=== PATIENT | male | born 1960 | race American Indian/Alaskan Native ===

== ENCOUNTER 2017-02-26 07:54 | Emergency (ER) | payer SELFPAY ==
[2017-02-26 08:03] VITALS: BMI 32.0
[2017-02-26 08:05] VITALS: BP 134/88; PULSE 64; RESP 16; TEMP 98.3; O2SAT 97
--- NOTE | 2017-02-26 09:31 | ED PDOC ---
Upper Extremity Pain/Injury Time Seen by Provider: 02/26/17 08:30 Chief Complaint (Nursing): Upper Extremity Problem/Injury Chief Complaint (Provider): Upper Extremity Problem/Injury History Per: Patient History/Exam Limitations: no limitations Onset/Duration Of Symptoms: Days (x1 week) Current Symptoms Are (Timing): Still Present Additional Complaint(s): Kirk Morrison is a 56 year old male who presents to the emergency department, accompanied by his girlfriend, for an evauation of right armpit pain associated with swelling ongoing for 1 week. Denied fever or chills. Patient stated he has been taking Advil for symptom relief. PMD: none provided Past Medical History Reviewed: Historical Data, Nursing Documentation, Vital Signs Vital Signs: Last Vital Signs Temp 98.3 F 02/26/17 08:03 Pulse 64 02/26/17 08:03 Resp 16 02/26/17 08:03 BP 134/88 02/26/17 08:03 Pulse Ox 97 02/26/17 08:03 - Medical History PMH: No Chronic Diseases - Surgical History Surgical History: Appendectomy - Family History Family History: States: Unknown Family Hx - Social History Current smoker - smoking cessation education provided: No Alcohol: None Drugs: Denies - Home Medications Home Medications: Ambulatory Orders Medication Instructions Recorded Albuterol HFA [Ventolin HFA 90 1 - 2 puff IH Q6 PRN #1 inhaler 08/06/16 mcg/actuation (8 g)] Benzonatate [Tessalon Perle] 100 mg PO TID PRN #15 capsule 08/06/16 levoFLOXacin [Levaquin] 500 mg PO DAILY #10 tab 08/06/16 Doxycycline Hyclate 100 mg PO BID #14 capsule 02/26/17 - Allergies Allergies/Adverse Reactions: Allergies Allergy/AdvReac Type Severity Reaction Status Date / Time No Known Allergies Allergy Verified 08/06/16 00:23 Review of Systems ROS Statement: Except As Marked, All Systems Reviewed And Found Negative Constitutional: Negative for: Fever, Chills, Weakness Musculoskeletal: Positive for: Arm Pain (right armpit) Physical Exam - Reviewed Nursing Documentation Reviewed: Yes Vital Signs Reviewed: Yes - Physical Exam Appears: Positive for: Well, Non-toxic, No Acute Distress Head Exam: Positive for: ATRAUMATIC, NORMAL INSPECTION, NORMOCEPHALIC Skin: Positive for: Normal Color, Warm, Dry. Negative for: Rash Eye Exam: Positive for: EOMI Cardiovascular/Chest: Positive for: Regular Rate, Rhythm Respiratory: Negative for: Decreased Breath Sounds, Respiratory Distress Extremity: Positive for: Normal ROM (bilateral arms) Lymphatic: Positive for: Other (right axilla linear density). Negative for: Adenopathy (or abscess/edema/erythema), Axilla Node Tenderness Neurologic/Psych: Positive for: Alert (x3), Oriented - ECG O2 Sat by Pulse Oximetry: 97 (RA) Pulse Ox Interpretation: Normal Medical Decision Making Medical Decision Making: Initial Impression: Hidradenitis Time: 929 --Upon provider evaluation, patient is medically stable and requires no further treatment in the ED at this time. Patient will be discharged home with Rx for Doxycyline Hyclate. Counseling was provided and all questions were answered regarding diagnosis. There is agreement to discharge plan. Return if symptoms persist or worsen. Clinical Impression: Hidradenitis Scribe Attestation: Documented by Comfort Gallo, acting as a scribe for Amrita Claudio MD. Provider Scribe Attestation: All medical record entries made by the Scribe were at my direction and personally dictated by me. I have reviewed the chart and agree that the record accurately reflects my personal performance of the history, physical exam, medical decision making, and the department course for this patient. I have also personally directed, reviewed, and agree with the discharge instructions and disposition. Disposition - Clinical Impression Clinical Impression: Hydradenitis - Patient ED Disposition Is Patient to be Admitted: No Counseled Patient/Family Regarding: Diagnosis, Rx Given - Disposition Referrals: [facility] [Outside] Disposition: Routine/Home Disposition Time: 09:30 Condition: GOOD Additional Instructions: take your medications as instructed. Follow up with your PCP in 2-3 days. Prescriptions: Doxycycline Hyclate 100 mg PO BID #14 capsule Instructions: Cellulitis (ED)
== END 2017-02-26 09:50 | disposition home or self-care (01) ==
LOC: H.ER 07:54
DX: M25.512 Pain in left shoulder (principal); L73.2 Hidradenitis suppurativa